=== PATIENT | male | born 1995 | race Caucasian/White ===

== ENCOUNTER 2019-02-21 16:19 | Emergency (ER) | payer OTHER ==
[2019-02-21] MEDS ORDERED: Acetaminophen/HYDROcodone 325-10 MG Tab PO ONE (17:24)
--- NOTE | 2019-02-21 18:55 | EDM.PDOC ---
ED HPI GENERAL MEDICAL PROBLEM - General Chief Complaint: Lower Extremity Injury/Pain Stated Complaint: R KNEE INJURY Time Seen by Provider: 02/21/19 16:58 Source of Information: Reports: Patient History Limitations: Reports: No Limitations - History of Present Illness INITIAL COMMENTS - FREE TEXT/NARRATIVE: 23 y/o male presents to ER with cc right knee pain. He states while at work his right foot got stuck under a branch. He went to turn and "only his knee twisted in the process." He states his leg "gave way" and he fell down. He reports he was not able to bear weight on his leg "without it giving way." He presents to ER with a splint in place and using crutches. He denies back, neck or head pain. He denies numbness or tingling. He didn't take anything for pain prior to arrival. Onset: Today Onset Date: 02/21/19 Onset Time: 14:00 Duration: Getting Worse Location: Reports: Lower Extremity, Right Quality: Reports: Ache Severity: Mild Improves with: Reports: None Worsens with: Reports: None Associated Symptoms: Reports: No Other Symptoms Right Knee Pain Score (Numeric/FACES): 7 - Related Data Allergies Allergy/AdvReac Type Severity Reaction Status Date / Time No Known Allergies Allergy Verified 02/21/19 16:46 Home Meds: Home Meds . [No Known Home Meds] 02/21/19 [History] Past Medical History - Past Health History Medical/Surgical History: Denies Medical/Surgical History Social & Family History - Tobacco Use Smoking Status *Q: Never Smoker Second Hand Smoke Exposure: No - Caffeine Use Caffeine Use: Reports: Soda - Recreational Drug Use Recreational Drug Use: No Review of Systems - Review of Systems Review Of Systems: See Below Constitutional: Reports: No Symptoms Eyes: Reports: No Symptoms Ears: Reports: No Symptoms Nose: Reports: No Symptoms Mouth/Throat: Reports: No Symptoms Respiratory: Reports: No Symptoms Cardiovascular: Reports: No Symptoms GI/Abdominal: Reports: No Symptoms Genitourinary: Reports: No Symptoms Musculoskeletal: Reports: Joint Pain (right knee) Skin: Reports: No Symptoms Neurological: Reports: No Symptoms Psychiatric: Reports: No Symptoms ED EXAM, GENERAL - Physical Exam Exam: See Below Exam Limited By: No Limitations General Appearance: Alert, WD/WN, No Apparent Distress Eye Exam: Bilateral Eye: EOMI, PERRL Ears: Normal External Exam, Normal Canal, Hearing Grossly Normal, Normal TMs Head: Atraumatic, Normocephalic Neck: Normal Inspection, Supple, Non-Tender, Full Range of Motion Respiratory/Chest: No Respiratory Distress, Lungs Clear, Normal Breath Sounds, No Accessory Muscle Use, Chest Non-Tender Cardiovascular: Normal Peripheral Pulses, Regular Rate, Rhythm, No Edema, No Gallop, No JVD, No Murmur, No Rub Peripheral Pulses: 4+: Dorsalis Pedis (L), Dorsalis Pedis (R) Back Exam: Normal Inspection, Full Range of Motion Extremities: Normal Inspection, No Pedal Edema, Normal Capillary Refill, Limited Range of Motion (right knee limited ROM due to pain. No crepitus noted , no swelling or warmth noted on right knee, neurovascularly intact. ) Neurological: Alert, Oriented, CN II-XII Intact, Normal Cognition, Normal Gait, Normal Reflexes, No Motor/Sensory Deficits Psychiatric: Normal Affect, Normal Mood Skin Exam: Warm, Dry, Intact, Normal Color, No Rash Lymphatic: No Adenopathy Course - Vital Signs Last Recorded V/S: Last Vital Signs Temp 98.6 F 02/21/19 16:40 Pulse 84 02/21/19 16:40 Resp 16 02/21/19 16:40 BP 129/83 02/21/19 16:40 Pulse Ox 98 02/21/19 16:40 - Orders/Labs/Meds Orders: Active Orders 24 hr Category Date Time Status Knee 3V Rt [CR] Stat Exams 02/21/19 16:59 Taken Meds: Medications Discontinued Medications Generic Name Dose Route Start Last Admin Trade Name Dotty PRN Reason Stop Dose Admin Hydrocodone Bitart/Acetaminophen 1 tab 02/21/19 17:24 02/21/19 17:43 [place] 325-10 Mg PO 02/21/19 17:25 1 tab ONETIME ONE Administration - Re-Assessments/Exams Free Text/Narrative Re-Assessment/Exam: 02/21/19 18:55 23 y/o male presented to ER with cc right knee pain after "twisting it a work." His preliminary x-ray reveals no fracture or dislocation. If there is a change after radiologist reads it I will contact the patient. I feel his pain is possibly to due to a pulled tendon. He received a [place] and his condition improved. I will discharge home with knee immobilizer. Instructed him to take Tylenol or Ibuprofen for pain. Instructed to follow up with his PCP. Instructed to return to the ER for any new or acute worsening symptoms. He verbalized understanding and is comfortable with plan for discharge. Departure - Departure Time of Disposition: 18:58 Disposition: Home, Self-Care 01 Condition: Good Clinical Impression: Knee sprain Qualifiers: Encounter type: initial encounter Involved ligament of knee: unspecified collateral ligament Laterality: right Qualified Code(s): S83.401A - Sprain of unspecified collateral ligament of right knee, initial encounter - Discharge Information *PRESCRIPTION DRUG MONITORING PROGRAM REVIEWED*: Not Applicable *COPY OF PRESCRIPTION DRUG MONITORING REPORT IN PATIENT ROSA: Not Applicable Instructions: Cryotherapy, Knee Sprain, Adult Referrals: PCP,None [Primary Care Provider] - Forms: ED Department Discharge, ED Return to Work/School Form Additional Instructions: You have been diagnosis with a knee sprain. Your x-ray did not reveal a fracture or dislocation. You may take Tylenol or Ibuprofen for pain. You may use ice 20 minutes at a time. Follow up with your PCP. Return to the ER for any new or acute worsening symptoms. - My Orders Last 24 Hours: My Active Orders 02/21/19 16:59 Knee 3V Rt [CR] Stat - Assessment/Plan Last 24 Hours: My Active Orders 02/21/19 16:59 Knee 3V Rt [CR] Stat
--- NOTE | 2019-02-22 07:00 | CR ---
Right knee: Three views of the right knee were obtained. Comparison: No previous knee study. Medial and lateral joint spaces are maintained in height. No joint effusion is seen. No fracture or other bony abnormality is identified. Impression: 1. No abnormality is appreciated on right knee exam. Diagnostic code #1
== END 2019-02-21 19:15 | disposition home or self-care (01) ==
LOC: JD.ED 16:19
DX: S83.401A Sprain of unspecified collateral ligament of right knee, initial encounter (principal); W22.8XXA Striking against or struck by other objects, initial encounter; Y99.0 Civilian activity done for income or pay
CPT/HCPCS: 73562; 99283; A9270